=== PATIENT | male | born 2005 | race Caucasian/White ===

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

== ENCOUNTER 2023-02-10 14:12 | Observation (INO) | payer BC ==
[2023-02-10 14:39] LABS: BASOPHILS ABSOLUTE AUTO 0.03 K/uL (0.00-0.10); BASOPHILS PERCENT AUTO 0.2 % (0.1-1.3); EOSINOPHILS ABSOLUTE AUTO 0.07 K/uL (0.00-0.40); EOSINOPHILS PERCENT AUTO 0.5 % (0.0-5.4); HEMATOCRIT 42.5 % (38.4-49.7); HEMOGLOBIN 14.6 g/dL (12.9-16.9); IMMATURE GRAN ABSOLUTE AUTO 0.03 K/uL (0.00-0.23); IMMATURE GRAN PERCENT AUTO 0.2 % (0.0-0.7); LYMPHOCYTES ABSOLUTE AUTO 1.64 K/uL (0.8-3.3); LYMPHOCYTES PERCENT AUTO 11.2 % (11.4-47.7); MEAN CORPUSCULAR HEMOGLOBIN 28.7 pg (31.6-35.5); MEAN CORPUSCULAR HGB CONC 34.4 g/dL (31.6-35.5); MEAN CORPUSCULAR VOLUME 83.5 fL (81.4-99.0); MONOCYTES ABSOLUTE AUTO 0.66 K/uL (0.20-0.90); MONOCYTES PERCENT AUTO 4.5 % (3.3-12.6); NEUTROPHILS ABSOLUTE AUTO 12.24 K/uL (1.0-7.6); NEUTROPHILS PERCENT AUTO 83.4 % (40.0-78.1); PLATELET COUNT,PLT 280 K/uL (130-375); RED BLOOD CELL COUNT 5.09 M/uL (4.14-5.76); WHITE BLOOD CELL COUNT,WBC 14.7 K/uL (3.2-11.0)
[2023-02-10] MEDS ORDERED: Sodium Chloride 0.9% 10 ML Syringe FLUSH PRN (14:58)
[2023-02-10] MEDS ORDERED: Ondansetron 4 MG/2 ML SDV IVPUSH PRN (14:58)
[2023-02-10 15:00] LABS: A/G RATIO 1.1 (1.2-2.2); ALANINE AMINOTRANSFERASE,ALT 22 U/L (12-78); ALBUMIN 4.2 g/dL (3.4-5.0); ALKALINE PHOSPHATASE 58 U/L (46-116); ANION GAP 13.5 mmol/L (5.0-14.0); ASPARTATE AMNIOTRANSFERASE,AST 11 U/L (15-37); BILIRUBIN TOTAL 0.9 mg/dL (0.2-1.0); BLOOD UREA NITROGEN,BUN 7 mg/dL (7-18); CALCIUM 9.3 mg/dL (8.5-10.1); CARBON DIOXIDE,CO2 27 mmol/L (21-32); CHLORIDE,CL 99 mmol/L (100-108); EST CRCL DRUG DOSING (CG) 134.28 mL/min; ESTIMATED GFR 111 mL/min (>60); GLUCOSE RANDOM 127 mg/dL (74-106); POTASSIUM,K 3.5 mmol/L (3.6-5.2); PROTEIN TOTAL,TP 7.9 g/dL (6.4-8.2); SODIUM,NA 136 mmol/L (140-148)
[2023-02-10] MEDS ORDERED: Piperacillin/Tazobactam 3.375 GM in Sodium Chloride 0.9% 50 ML IV SCH (15:15)
[2023-02-10] MEDS: Acetaminophen 500 MG Tab PO SCH ×2 (16:12→21:48)
[2023-02-10] MEDS: Piperacillin/Tazobactam/Dext 3.375 GM in Premix Bag 1 BAG IV SCH ×2 (16:25→21:49)
[2023-02-10] MEDS: Lactated Ringers 1,000 ML IV SCH (16:25)
[2023-02-10] MEDS ORDERED: Melatonin 3 MG Tab PO PRN (18:32)
[2023-02-11] MEDS: Lactated Ringers 1,000 ML IV SCH (03:33)
[2023-02-11] MEDS: Acetaminophen 500 MG Tab PO SCH ×2 (03:33→09:50)
[2023-02-11] MEDS: Piperacillin/Tazobactam/Dext 3.375 GM in Premix Bag 1 BAG IV SCH (03:35)
[2023-02-11 06:12] LABS: HEMOGLOBIN 13.3 g/dL (12.9-16.9); MEAN CORPUSCULAR HEMOGLOBIN 29.5 pg (31.6-35.5); MEAN CORPUSCULAR VOLUME 84.3 fL (81.4-99.0); RED BLOOD CELL COUNT 4.51 M/uL (4.14-5.76); WHITE BLOOD CELL COUNT,WBC 11.1 K/uL (3.2-11.0)
[2023-02-11 06:29] LABS: CALCIUM 8.6 mg/dL (8.5-10.1); CREATININE 0.9 mg/dL (0.8-1.3); EST CRCL DRUG DOSING (CG) 149.2 mL/min; POTASSIUM,K 3.9 mmol/L (3.6-5.2)
[2023-02-11 06:39] LABS: ANION GAP 11.9 mmol/L (5.0-14.0)
[2023-02-11] MEDS ORDERED: Bupivacaine 0.5%/EPINEPHrine 1:200,000 50 ML MDV ONE (06:47)
[2023-02-11 06:50] LABS: MAGNESIUM 1.9 mg/dL (1.8-2.4); PHOSPHORUS 4.6 mg/dL (2.5-4.9)
[2023-02-11] MEDS ORDERED: Piperacillin/Tazobactam 2.25 GM in Sodium Chloride 0.9% 50 ML IV ONE (07:06)
[2023-02-11] MEDS ORDERED: fentaNYL 250 MCG/5 ML SDV ONE (07:10)
[2023-02-11] MEDS ORDERED: Dexamethasone 4 MG/ML SDV ONE (07:11)
[2023-02-11] MEDS ORDERED: Rocuronium 50 MG/5 ML Vial ONE (07:11)
[2023-02-11] MEDS ORDERED: Glycopyrrolate 0.2 MG/ML 5 ML MDV ONE (07:11)
[2023-02-11] MEDS ORDERED: Propofol 200 MG/20 ML SDV ONE (07:11)
[2023-02-11] MEDS ORDERED: Neostigmine Methylsulfate 1 MG/ML 5 ML Syringe ONE (07:11)
[2023-02-11] MEDS ORDERED: Ondansetron 4 MG/2 ML SDV ONE (07:11)
[2023-02-11] MEDS ORDERED: Piperacillin/Tazobactam/Dext 2.25 GM in Premix Bag 1 BAG IV ONE (07:15)
[2023-02-11] MEDS ORDERED: Lactated Ringers 1,000 ML ONE (08:10)
[2023-02-11] MEDS ORDERED: oxyCODONE 5 MG Tab PO PRN (08:22)
== END 2023-02-11 15:10 | disposition home or self-care (01) ==
LOC: JP.SDS 14:12 → JP.MS 14:23 → JP.SDS 14:58 → JP.MS 14:58
PROVIDERS: ADMIT Surgery; ATTEND Student in an Organized Health Care Education/Training Program
DX: K35.80 Unspecified acute appendicitis (principal); Z20.822 Contact with and (suspected) exposure to COVID-19
CPT/HCPCS: 36415; 44970; 80048; 80053; 83735; 84100; 85025; 85027; 87635; 88304; 96361; 96365; 96376; A9270; G0378; G0379; J1100; J2405; J2543; J2704; J2710; J3010; J3490; J7120; 74177; 74177-26; Q9967; U0002